=== PATIENT | female | born 1945 | race Caucasian/White ===

== ENCOUNTER 2023-02-21 20:44 | Emergency (ER) | payer MEDICARE, SELFPAY ==
[2023-02-21 20:48] VITALS: BP 138/59; PULSE 66; RESP 16; TEMP 36.4; O2SAT 98; BMI 20.9
[2023-02-21 21:30] LABS: Add Manual Diff / Slide Review NO; Basophils Absolute Auto 0 /uL (0-100); Basophils Percent Auto 0.4 % (0-2); Eosinophils Absolute Auto 100 /uL (0-450); Eosinophils Percent Auto 0.9 % (2-4); Hematocrit 38.6 % (36-46); Hemoglobin 13.1 g/dL (12.0-16.0); Lymphocytes Absolute Auto 1500 /uL (1100-4500); Lymphocytes Percent Auto 21.6 % (25-40); Mean Corpuscular HGB Conc 33.8 % (30-36); Mean Corpuscular Hemoglobin 30.6 PG (26-34); Mean Corpuscular Volume 90.4 fL (80-100); Monocytes Absolute Auto 400 /uL (0-900); Monocytes Percent Auto 6.2 % (3-14); Neutrophils Absolute Auto 4800 /uL (1500-7000); Neutrophils Percent Auto 70.9 % (50-75); Platelet Count 281 X10^3/uL (150-400); Red Blood Cell Count 4.27 X10^6/uL (4.0-5.2); Red Cell Distribution Width 12.8 % (11.6-14.8); White Blood Cell Count 6.7 X10^3/uL (4.5-11.0)
[2023-02-21 21:34] LABS: Alanine Aminotransferase 19 IU/L (<35); Albumin 4.5 g/dL (3.5-5.0); Albumin Globulin Ratio 1.5 (1.0-2.8); Alkaline Phosphatase 54 U/L (38-126); Aspartate Aminotransferase 25 IU/L (14-36); BUN Creatinine Ratio 21.9 (6-22); Bilirubin Total 0.6 mg/dL (0.2-1.3); Blood Urea Nitrogen 16 mg/dL (7-17); Calcium 9.3 mg/dL (8.4-10.2); Carbon Dioxide 30 mmol/L (22-32); Chloride 98 mmol/L (98-107); Estimated Glomerular Filt Rate > 60 mL/min (>60); Globulin 3.1 g/dL (1.7-4.1); Glucose 97 mg/dL (80-110); HEMOLYSIS < 15 (0-50); Lipase 72 U/L (23-300); Potassium 4.1 mmol/L (3.4-5.1); Sodium 136 mmol/L (137-145); Total Protein 7.6 g/dL (6.3-8.2)
[2023-02-21 23:09] VITALS: BP 128/58; PULSE 60; RESP 18; O2SAT 98
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
--- NOTE | 2023-02-22 00:24 | DI.CT.S_ITS ---
PROCEDURE: CT ABDOMEN PELVIS W CON INDICATIONS: RLQ and epigastric pain TECHNIQUE: After the administration of IV contrast, axial sections were acquired from the lung bases to the pubic symphysis. Coronal and sagittal reformats were performed. For radiation dose reduction, the following was used: automated exposure control, adjustment of mA and/or kV according to patient size. COMPARISON: None. FINDINGS: Image quality: Excellent. Lung bases: There is a right lower lobe pulmonary nodule measuring 0.5 cm on series 3, image 10. In the left lower lobe, there is also a peripheral 0.4 cm pulmonary nodule on series 3, image 14. Mild dependent atelectasis is demonstrated. . Heart: Heart is normal in size. ABDOMEN: Liver: There is mild focal fatty infiltration in the anterior left hepatic lobe. A small focal hypodensity measuring up to 0.7 cm is also demonstrated likely representing a cyst. Gallbladder: Within normal limits without calcified gallstones. Biliary ducts: No biliary ductal dilatation. Pancreas: Unremarkable. Spleen: Normal in size. Adrenal Glands: No adrenal nodules. Kidneys and Ureters: No hydronephrosis. Stomach and Bowel: Stomach, small bowel loops, and colon are normal in caliber and wall thickness. The appendix is not discretely well visualized but there are no pericecal inflammatory changes to suggest appendicitis. Peritoneum: No abnormal intraperitoneal fluid. No free air. Ventral Wall: No hernia. Abdominal Nodes: No retroperitoneal or mesenteric adenopathy by size criteria. Vessels: Aorta and inferior vena cava are normal in size. PELVIS: Pelvic Organs: Unremarkable. Bladder: Unremarkable. Pelvic Nodes: No enlarged lymph nodes. Miscellaneous: No inguinal hernias are seen. Bones: Visualized osseous structures demonstrate no suspicious focal lesions. IMPRESSION: 1. No definite acute intra-abdominal abnormality. No pericecal inflammatory changes to suggest appendicitis. 2. Indeterminate bibasilar pulmonary nodules. If patient is at high risk for malignancy, a follow-up CT may be performed in 12 months to demonstrate stability. Dictated by: Michael Gabriel M.D. on 02/22/2023 at 1:37 Approved by: Michael Gabriel M.D. on 02/22/2023 at 1:43
[2023-02-22 03:44] VITALS: BP 134/65; PULSE 60; RESP 18; O2SAT 97
== END 2023-02-22 03:43 | disposition home or self-care (01) ==
PROVIDERS: Emergency Provider Emergency Medicine
DX: S39.011A Strain of muscle, fascia and tendon of abdomen, initial encounter (principal); R10.31 Right lower quadrant pain; R91.1 Solitary pulmonary nodule; X50.0XXA Overexertion from strenuous movement or load, initial encounter
CPT/HCPCS: 36415; 74177; 80053; 83690; 85025; 99283; Q9967

== ENCOUNTER → 2023-11-24 13:50 | Outpatient (CLI) | payer MEDICARE, SELFPAY ==
--- NOTE | 2023-11-24 | DI.RAD.S_ITS ---
PROCEDURE: XR KNEE LT 1TO2V INDICATIONS: L KNEE PAIN TECHNIQUE: 2 views of the knee were acquired. COMPARISON: None. FINDINGS: Bones: Patellar enthesopathy. Mild degenerative changes. No displaced fracture or dislocation. Soft tissues: Possible small knee joint effusion. IMPRESSION: Moderate patellar enthesopathy. Mild overall degenerative changes elsewhere. If there is high concern for further derangement, consider MRI evaluation. Dictated by: Juan Diego Kong M.D. on 11/24/2023 at 16:55 Approved by: Juan Diego Kong M.D. on 11/24/2023 at 16:56
[2023-11-24 15:35] LABS: Free T3, Triiodothyronine Free 3.34 pg/mL (2.77-5.27); Free T4, Direct Thyroxine 0.93 ng/dL (0.78-2.19)
[2023-11-24 15:48] LABS: Thyroid Stimulating Hormone 2.77 uIU/mL (0.47-4.68)
[2023-11-24 15:54] LABS: Cholesterol 229 mg/dL (140-199); HDL Cholesterol 77 mg/dL (40-60); LDL Cholesterol Calculated 133 mg/dL (<100); Triglycerides 93 mg/dL (35-150)
[2023-11-24 16:30] LABS: Hepatitis B Surface Antigen NEGATIVE s/c (NEGATIVE)
[2023-11-24 16:58] LABS: HIV 1 & 2 Ab/Ag 4th Gen Combo NEGATIVE (NEGATIVE); Hep C Virus Ab w/Reflex Quant NEGATIVE s/c (NEGATIVE)
[2023-11-24 17:42] LABS: Urine Chlamydia NOT DETECTED; Urine N gonorrhoeae NOT DETECTED
[2023-11-25 06:32] LABS: Hepatitis B Core Antibody Negative (Negative); RPR Screen Non Reactive (Non Reactive)
[2023-11-25 19:07] LABS: Anti Thyroglobulin Antibody 0.9 IU/mL (0.0-0.9); Thyroid Peroxidase Antibodies 305 IU/mL (0-34)
[2023-11-26 06:11] LABS: Hepatitis B Surf Ab Qualitativ Non Reactive (.)
== END ==
LOC: LAB 13:57
PROVIDERS: PCP Nurse Practitioner Family; Referring Provider Nurse Practitioner Family; Visit Provider Nurse Practitioner Family
DX: E03.9 Hypothyroidism, unspecified (principal); M25.562 Pain in left knee; Z13.220 Encounter for screening for lipoid disorders; Z11.3 Encounter for screening for infections with a predominantly sexual mode of transmission; Z11.59 Encounter for screening for other viral diseases; M77.8 Other enthesopathies, not elsewhere classified
CPT/HCPCS: 36415; 73560; 80061; 84439; 84443; 84481; 86376; 86592; 86704; 86706; 86800; 86803; 87340; 87389; 87491; 87591